=== PATIENT | male | born 1940 | race Caucasian/White ===

== ENCOUNTER → 2016-11-28 | Outpatient (CLI) | payer MEDICARE ==
[2016-11-28 17:02] LABS: HEMOGLOBIN 14.5 g/dL (14.1-18.0); LYMPH % 27.9 % (10-50)
[2016-11-28 18:42] LABS: BUN 12 mg/dL (7-18)
[2016-11-28 18:55] LABS: GFR (ESTIMATED) 59 ML/MIN (>60)
--- NOTE | 2016-11-29 09:03 | RADIOLOGY REPORT PS360 ---
WRIST-3 VIEWS-LT HISTORY: LEFT WRIST PAINfall 3 weeks ago Patient Age: 76 years: Male Ordering Physician: GRACIA ANDERSON TECHNIQUE: 3 views left wrist COMPARISON :None available FINDINGS No definitive fracture.. No dislocation On the slightly rotated lateral view there is some mild prominence of dorsal aspect triquetrum. I favor this is due to the location slightly rotated character of this lateral view. However If Pain posteriorly overlying triquetrum here at the dorsal aspect wrist suggest orthopedic follow-up.. If pain here may may require follow-up radiographs or possibly advanced imaging to further evaluate. Suggestion of some mild soft tissue swelling dorsally at the wrist & through this region. . At the scaphoid I favor Contour variation at the waist most likely accounts for its appearance. Slight narrowing at the scaphoid trapezium articulation suggesting early degenerative changes here. Mild diffuse demineralization noted IMPRESSION: ------ No definitive fracture nor dislocation. However there is Slight accentuated dorsal extension appearance of the triquetrum on the lateral view likely due due to the slightly rotated lateral positioning. If there is focal tenderness overlying the dorsal triquetrum this may warrant follow-up radiographs and possibly advanced imaging along with follow-up with orthopedics, in order to better exclude a subtle triquetral fracture or injury.
== END ==
LOC: LAB 16:28
PROVIDERS: Nurse Practitioner Family
DX: R53.83 Other fatigue (principal); M25.532 Pain in left wrist; Z79.899 Other long term (current) drug therapy